=== PATIENT | male | born 1970 | race Two or more races ===

== ENCOUNTER 2020-07-06 05:15 | Day surgery (SDC) | payer OTHER ==
[~2020-07-06 05:15] MED LIST: ACID REDUCER20 M1 PO; BUPROPION XL300 MG PO; CLONAZEPAM2 M1 PO; COZAAR25 MG PO; DOXEPIN HCL150 MG PO; FIORINAL-COD 31 EACH PO; FLUOXETINE HCL20 M1 PO; LEVO-T25 MCG PO; QUETIAPINE FUM400 M1 PO; TOPROL XL100 M1 PO
[2020-07-06] MEDS ORDERED: COLACE100 MG PO (12:49)
[2020-07-06] MEDS ORDERED: PERCOCET 5-3251 EACH PO (12:49)
== END 2020-07-06 18:45 | disposition home or self-care (01) ==
LOC: CIR.AMB 05:15 → CERTIFICAD 09:00 → CIR.AMB 09:00
PROVIDERS: ATTEND Surgery
DX: K60.1 Chronic anal fissure (principal); Z20.828 Contact with and (suspected) exposure to other viral communicable diseases